=== PATIENT | male | born 1980 | race Caucasian/White ===

== ENCOUNTER 2020-12-27 16:18 | Emergency (ER) | payer BC, MEDICAID ==
[~2020-12-27] VITALS: Ht 180.3 cm; Wt 90.7 kg
[2020-12-27] MEDS ORDERED: LOSA100T31 PO (16:27)
[2020-12-27] MEDS ORDERED: NIFE-34 PO (16:27)
[2020-12-27] MEDS ORDERED: IV NORMAL SALINE 1000 ML BAG IV ONE (16:45)
[2020-12-27] MEDS ORDERED: MECLIZINE HCL 25 MG TABLET PO ONE (16:45)
[2020-12-27 16:54] LABS: MEAN CORPUSCULAR VOLUME 76.6 fL (73.0-96.2); PLATELET COUNT (AUTO) 210 K/uL (152-348)
[2020-12-27 16:59] LABS: CREATININE 1.2 mg/dL (0.6-1.3); POTASSIUM 3.6 mmol/L (3.5-5.1)
--- NOTE | 2020-12-27 17:00 | NUR ---
PT IS IN ROOM #1B. DR DAVISON EVALUATED THE PT.
[2020-12-27] MEDS ORDERED: MECLIZINE HCL 25 MG TABLET ONE (17:01)
--- NOTE | 2020-12-27 18:20 | NUR ---
IV removed. Catheter intact and site benign. Pressure and 4x4 gauze applied to site. No bleeding noted.
--- NOTE | 2020-12-27 18:24 | NUR ---
Patient discharged to home in stable condition. Written and verbal after care instructions given. Patient verbalizes understanding of instructions. Stressed follow up or return to ER for worsening s/s.
[2020-12-27 18:25] VITALS: BP 132/72
== END 2020-12-27 18:25 | disposition home or self-care (01) ==
LOC: ER 16:18
DX: R42 Dizziness and giddiness (principal); R00.2 Palpitations; Z90.5 Acquired absence of kidney; Z79.899 Other long term (current) drug therapy
CPT/HCPCS: 36415; 70030-TC; 85025; 93005; A4663; J7030; J8597